=== PATIENT | female | born 1955 | race Caucasian/White ===

== ENCOUNTER 2018-10-25 17:04 | Observation (INO) ==
[2018-10-25] MEDS ORDERED: ALPRAZolam 0.5 MG TABLET PO ONE (17:34)
--- NOTE | 2018-10-25 17:35 | Emergency Department Note ---
Disposition Clinical Impression: Hyperglycemia, COPD (chronic obstructive pulmonary disease), Dyspnea Disposition: Admitted As Inpatient Condition: Fair Referrals: NONE,PCP [Primary Care Provider] - Forms: ED Satisfaction Letter Time of Disposition: 19:27 SOB HPI - General Chief Complaint: ED Shortness of Breath/Dyspnea Stated Complaint: short of breath,cough,pain Time Seen by Provider: 10/25/18 17:17 Source: patient Mode of arrival: ambulatory Limitations: no limitations Nursing Notes Reviewed: Yes Vital Signs Reviewed: Yes - History of Present Illness 63-year-old female who is had 4 ER visits prior to today who is been seen once a week for having upper respiratory symptoms cough and congestion intermittent wheezing she said today she sat with car for an hour and a half before she get worked up to come to the ER patient states that she's having cough congestion wheezing she's had no chest pain or chest pressure patient states that the symptoms blurred vision double vision loss vision she denies any numbness tingling weakness she has a recent weight gain rash or lesions states that she's been drinking a lot of fluids in addition that she is diabetic she states that she only takes oral medication she said her sugars run between 203 100 states that she's been urinating a lot she denies any additional complaints with complete entire review is Pt Subjective Complaint: shortness of breath Onset (ago): Just SCRIPT READER Context: recent illness Severity: moderate Consistency/Duration: constant, gradually worsening Improves with: nothing Worsens with: exertion Known history of: COPD Associated symptoms: Reports: cough, wheezing, sputum production. Denies: chest pain, pain with inspiration, fever, orthopnea, lower extremity pain, polyuria, polydipsia, parasthesias, palpitations, hemoptysis, nausea/vomiting, syncope, abdominal pain Treatment prior to arrival: other (4 prior ER visits to today for the same as well as daily discussions with her clinical biochemical geneticist) Cough present: Yes Cough Description: Involuntary, Weak, Wheezy Sputum production: Yes Sputum Amount: Small Sputum Color: Yellow - Related Data Home Medications Medication Instructions Recorded Confirmed Albuterol Sulfate [Proair HFA] 2 puff IH Q4HR 06/23/15 08/26/18 Gabapentin [Neurontin] 300 mg PO QID 06/23/15 08/26/18 Simvastatin [Zocor] 20 mg PO HS 06/23/15 10/25/18 Sitagliptin Phos/Metformin HCl 1 tab PO BID 06/23/15 10/25/18 [Janumet 50-1,000 mg Tablet] Aspirin [Ecotrin] 325 mg PO DAILY 08/26/18 08/26/18 Alendronate Sodium 70 mg PO QWEEK 09/30/18 09/30/18 DULoxetine [Cymbalta] 30 mg PO DAILY 09/30/18 09/30/18 Diclofenac Sodium [Voltaren] 50 mg PO TID 09/30/18 09/30/18 GlipiZIDE [Glipizide Xl] 5 mg PO DAILY 09/30/18 Insulin Glargine,Hum.rec.anlog 20 unit SQ 09/30/18 [Basaglar Kwikpen U-100] Montelukast [Singulair] 10 mg PO DAILY 09/30/18 Oxybutynin [Ditropan] 5 mg PO BID 09/30/18 09/30/18 Pioglitazone [Actos] mg PO DAILY 09/30/18 predniSONE [Prednisone] 10 mg PO DAILY 10/14/18 10/25/18 Previous Rx's Medication Instructions Recorded Albuterol Sulfate [Albuterol 2 puff IH Q6H #1 puff 08/16/15 Inhaler] Allergies Allergy/AdvReac Type Severity Reaction Status Date / Time codeine Allergy Hives Verified 10/25/18 17:05 propoxyphene [From Darvon] Allergy Hives Verified 10/25/18 17:05 All systems ED: reviewed and negative except as stated. Review of Systems: As Per HPI Constitutional: Denies: fever, chills, weakness Eyes: Denies: eye pain, eye discharge ENT ED: Reports: throat pain, congestion. Denies: ear pain Cardiovascular: Reports: dyspnea on exertion. Denies: chest pain, palpitations Respiratory: Reports: cough, dyspnea, wheezes, sputum production Gastrointestinal: Denies: abdominal pain, nausea, vomiting Genitourinary: Denies: urgency, dysuria, frequency Musculoskeletal: Denies: back pain, neck pain Integumentary: Denies: rash, abrasion Neurological: Reports: weakness. Denies: headache Psychiatric: Denies: anxiety, depression Endocrine: Reports: polydipsia, polyuria. Denies: fatigue, heat or cold intolerance Hematological/Lymphatic: Denies: easy bleeding Allergic/Immunologic: Denies: facial swelling Past Medical History - Past Medical History Attestation: Yes The following information was validated with the patient. Source: patient, old records reviewed, nursing notes reviewed Medical history: Reports: arthritis, asthma, COPD, diabetes, hyperlipidemia, hypertension, other Surgical history: Reports: , hysterectomy Psychiatric history: Reports: depression PRN OCCUPATIONAL THERAPIST history: Reports: no PRN OCCUPATIONAL THERAPIST history - Social History Smoking Status: Current every day smoker Smokeless Tobacco Status: No Alcohol use: Reports: none Drug use: Reports: none Physical Exam - General Limitations: no limitations General appearance: alert, in no apparent distress, anxious - Head Head exam: atraumatic, normocephalic, normal inspection - Eye Eye exam: Present: normal appearance, PERRL, EOMI - ENT ENT exam: normal exam, normal oropharynx, mucous membranes moist, TM's normal bilaterally, normal external ear exam - Neck Neck exam: Present: normal inspection, full ROM, trachea midline - Chest Chest inspection: Present: normal inspection, symmetric chest wall rise - Respiratory Respiratory exam: Present: wheezes, prolonged expiratory phase - Cardiovascular Cardiovascular exam: Present: tachycardia, normal heart sounds - Abdominal Exam Abdominal exam: Present: soft, Non-Tender, normal bowel sounds. Absent: mass, pulsatile mass - Extremities Exam Extremities exam: Present: normal inspection, full ROM, normal capillary refill. Absent: tenderness, pedal edema, joint swelling, calf tenderness - Expanded Lower Extremity Exam Neurovascular/Tendon exam: Present: normal capillary refill, normal fine/light touch Gait: observed and normal - Back Exam Back exam: Present: normal inspection, full ROM. Absent: muscle spasm - Neurological Exam Neurological exam: Present: alert, oriented X3, CN II-XII intact, normal gait - Psychiatric Psychiatric exam: Present: normal affect, normal mood - Skin Skin exam: Present: warm, dry, intact, normal color Course Course Narrative: Patient was seen and evaluated laboratory data was obtained patient was very hesitant on doing IV access but she finally did agree we gave her Xanax to calm her down blood was obtained with results maintain her sugar was 465 she is a noncompliant diabetic she is only taking oral she refuses to do shots she supposed be taking 20 units of what sounds like Lantus the evenings as result of the patient be medication exacerbation of COPD which is that the rhonchi and wheezing noted normal for her on medications for her diabetes while she is here patient was then transferred to [facility] service of Dr. Farmer - Reevaluation(s) Reevaluation #1: Patient given 10 units of insulin here in the emergency room with IV hydration Vital Signs Temperature 98.3 F 10/25/18 17:07 Pulse Rate 112 10/25/18 17:07 Respiratory Rate 18 10/25/18 17:07 Blood Pressure 138/87 10/25/18 17:07 O2 Sat by Pulse Oximetry 98 10/25/18 17:07 Temperature 98.7 F 10/25/18 20:44 Pulse Rate 100 10/25/18 20:44 Respiratory Rate 20 10/25/18 20:44 Blood Pressure 120/76 10/25/18 20:44 O2 Sat by Pulse Oximetry 98 10/25/18 20:44 Oxygen Delivery Oxygen Delivery Nasal Cannula Shortness of Breath/Dyspnea - Differential Diagnosis Likely: acute exacerbation of chronic obstructive airways disease, congestive heart failure, pneumonia, asthma with exacerbation - Medical Records Medical records reviewed: Yes I reviewed the patient's medical records. - Lab Data Lab results reviewed: Yes I reviewed the patient's lab results. Result diagrams: 10/25/18 18:25 10/25/18 18:25 Lab Results 10/25/18 10/25/18 10/25/18 Range/Units 18:25 18:25 18:25 WBC 10.9 (4.3-11.1) K/mcL RBC 4.49 (3.82-4.97) M/mcL Hgb 12.8 (11.5-15.4) g/dL Hct 38.6 (35.3-44.9) % MCV 86.0 (83.0-100.0) fL MCH 28.5 (28.0-33.3) pg MCHC 33.2 (31.6-35.5) g/dL RDW 13.9 (11.5-14.5) % Plt Count 241 (140-400) K/mcL MPV 10.9 (9.4-12.4) fL Immature Gran % 0.5 (0-4) % Seg Neutrophils % 80.8 % Lymphocytes % 13.5 % Monocytes % 4.9 % Eosinophils % 0.2 % Basophils % 0.1 % Neutrophils # 8.8 (1.6-8.9) K/mcL Lymphocytes # 1.5 (0.6-4.6) K/mcL Monocytes # 0.5 (0.0-1.3) K/mcL Eosinophils # 0.0 (0.0-0.6) K/mcL Basophils # 0.0 (0.0-0.2) K/mcL Sodium 136 (136-145) mEq/L Potassium 4.3 (3.5-5.1) mEq/L Chloride 99 (98-107) mEq/L Carbon Dioxide 30 H (23-29) mEq/L BUN 22 (8-23) mg/dL Creatinine 0.85 (0.60-1.20) mg/dL Est GFR ( Amer) > 60 (> 60) Est GFR (Non-Af Amer) > 60 (> 60) BUN/Creatinine Ratio 26 (6-26) Glucose 425 H (70-105) mg/dL Calculated Osmolality 303 H (280-300) Lactic Acid 2.3 H (0.5-2.2) mmol/L Calcium 9.5 (8.6-10.3) mg/dL - Radiology Data Radiology results reviewed: Yes I reviewed the patient's radiology results. ITS Impressions Chest CT 10/25/18 17:36 IMPRESSION: 1. Stable right middle lobe atelectasis. Consider pulmonary consultation and bronchoscopy if not already performed. 2. No acute pulmonary infiltrate. Stable mild emphysematous changes. 3. New mild compression fractures of the T4 and T6 vertebral bodies. 4. Cardiomegaly with mild pericardial thickening or small pericardial effusion. D/ / 10/25/2018 18:23:08 Alexandr Leal MD / bcarter Interpreting Provider: Alexandr Leal MD - EKG Data EKG attestation: Yes I reviewed and interpreted this EKG. EKG results narrative: Sinus rhythm rate 97 IL 146 QRS 101 QT 365 axis LXXI Critical Care Time Critical Care Time: No
[2018-10-25] MEDS ORDERED: methylPREDNISolone 125 MG/2 ML VIAL IVP ONE (17:36)
[2018-10-25] MEDS ORDERED: Azithromycin 500 MG in D5% in Water 250 ML IVPB ONE (17:36)
[2018-10-25 18:37] LABS: Basophils % 0.1 %; Eosinophils % 0.2 %; Hematocrit 38.6 % (35.3-44.9); Hemoglobin 12.8 g/dL (11.5-15.4); Immature Granulocytes % 0.5 % (0-4); Lymphocytes # 1.5 K/mcL (0.6-4.6); Lymphocytes % 13.5 %; Mean Corpuscular HGB Conc 33.2 g/dL (31.6-35.5); Mean Corpuscular Hemoglobin 28.5 pg (28.0-33.3); Mean Platelet Volume 10.9 fL (9.4-12.4); Monocytes # 0.5 K/mcL (0.0-1.3); Monocytes % 4.9 %; Neutrophils # 8.8 K/mcL (1.6-8.9); Platelet Count 241 K/mcL (140-400); Red Blood Count 4.49 M/mcL (3.82-4.97); Red Cell Distribution Width 13.9 % (11.5-14.5); Segmented Neutrophils % 80.8 %
[2018-10-25 18:53] LABS: BUN/Creatinine Ratio 26 (6-26); Blood Urea Nitrogen 22 mg/dL (8-23); Calcium 9.5 mg/dL (8.6-10.3); Carbon Dioxide 30 mEq/L (23-29); Chloride 99 mEq/L (98-107); Glucose 425 mg/dL (70-105); Osmolality,Calculated 303 (280-300); Potassium 4.3 mEq/L (3.5-5.1); Sodium 136 mEq/L (136-145); eGFR For Non-African Americans > 60 (> 60)
[2018-10-25] MEDS ORDERED: Insulin Human Regular 10 UNIT in 0.9 % Sodium Chloride 10 ML IV STA (19:08)
[2018-10-25] MEDS ORDERED: Naloxone 0.4 MG/ML INJ IVP PRN (21:38)
[2018-10-25] MEDS ORDERED: D5% in Water 1,000 ML IVC PRN (21:38)
[2018-10-25] MEDS ORDERED: *HR* Dextrose 50 % in Water (Syg) 50 ML SYRINGE IVP PRN (21:38)
[2018-10-25] MEDS ORDERED: Dextrose Gel 15 GM/37.5 ML TUBE PO PRN ×2 (21:38)
[2018-10-25] MEDS ORDERED: NON-FORMULARY MEDICATION 1 EACH EACH (Alendronate Sodium [Alendronate Sodium] 70 MG) PO SCH (21:38)
[2018-10-26] MEDS: traMADol 50 MG TABLET PO PRN ×3 (00:01→08:41)
[2018-10-26] MEDS: Gabapentin 300 MG CAPSULE PO SCH ×5 (00:02→21:35)
[2018-10-26] MEDS: JANUMET PO SCH ×2 (00:02→08:16)
[2018-10-26] MEDS: Insulin LISPRO 300 UNITS/3 ML VIAL SQ SCH ×4 (00:02→16:53)
[2018-10-26] MEDS: 0.9 % Sodium Chloride 1,000 ML IVC SCH ×2 (00:02→08:28)
[2018-10-26] MEDS: MethylPREDNISolone 40 MG/ML VIAL IVP SCH ×4 (00:05→17:05)
[2018-10-26] MEDS: cefTRIAXone 1,000 MG in Water for inj. (sterile) 20 ML 10 ML IVP SCH (08:30)
[2018-10-26] MEDS: *HR* GlipiZIDE XL (24 HR) 2.5 MG TABLET PO SCH (08:31)
[2018-10-26] MEDS ORDERED: Aspirin Enteric Coated 325 MG Tablet PO SCH (09:00)
[2018-10-26] MEDS ORDERED: Ondansetron 4 MG/2 ML VIAL IVP PRN (10:39)
[2018-10-26] MEDS: Nicotine 21 MG PATCH.TD24 TD SCH (11:38)
[2018-10-26] MEDS: Fluconazole 100 MG TABLET PO SCH (11:40)
--- NOTE | 2018-10-26 14:48 | Internal Med History&Physical ---
Date of Encounter: 10/26/18 Time of Encounter: 14:05 Assessment and Plan (1) COPD (chronic obstructive pulmonary disease) Current visit: Yes Status: Acute She has been started on Rocephin and Zithromax with Solu-Medrol. Lactobacillus will be added and further workup done as needed. Qualifiers: COPD type: COPD with acute exacerbation Qualified Code(s): J44.1 - Chronic obstructive pulmonary disease with (acute) exacerbation (2) Hypertension Current visit: Yes Status: Chronic She reports being on antihypertensive medication at home but does not know the name. Will monitor blood pressure. Qualifiers: Hypertension type: essential hypertension Qualified Code(s): I10 - Essential (primary) hypertension (3) DM type 2 (diabetes mellitus, type 2) Current visit: Yes Status: Chronic Check hemoglobin A1c in a.m. Continue Accu-Cheks with SSI. Qualifiers: Diabetes mellitus half-way insulin use: with oysterman use Diabetes mellitus complication status: with neurologic complications Diabetes mellitus complication detail: with polyneuropathy Qualified Code(s): E11.42 - Type 2 diabetes mellitus with diabetic polyneuropathy; Z79.4 - senior care (current) use of insulin (4) Hyperlipidemia Current visit: Yes Status: Chronic Continue simvastatin Qualifiers: Hyperlipidemia type: unspecified Qualified Code(s): E78.5 - Hyperlipidemia, unspecified (5) Diabetic peripheral neuropathy Current visit: Yes Status: Acute Continue Cymbalta and gabapentin (6) Overactive bladder Current visit: Yes Status: Acute Continue Ditropan (7) Compression fracture of thoracic spine, non-traumatic Current visit: Yes Status: Acute Start scheduled analgesics in addition to prn analgesics. Oral and topical analgesics will be ordered. Vitamin D level will be drawn. Qualifiers: Encounter type: initial encounter Thoracic vertebra fracture level: T6 Qualified Code(s): M48.54XA - Collapsed vertebra, not elsewhere classified, thoracic region, initial encounter for fracture Internal Medicine - H&P: HPI Chief complaint: Dyspnea, fever Admitted From: Emergency Dept Plans for Post Hospital Care: Home History of present illness: Ms. Soriano is a 63 year old female who came to emergency room complaining of increased dyspnea over the preceding days with nonproductive cough and fever up to 102.7 at home. She was evaluated in emergency room and felt to have exacerbation of COPD. She was admitted to MedSurg floor for ongoing care needs. Respiratory history is significant for having smoked since age 12 up to 3 packs per day. She has a diagnosis of COPD and wears oxygen 24/ at home. She had bronchoscopy 08/14/2017 for right middle lobe collapse. She does not know report details. Chest CT in emergency room showed stable right middle lobe atelectasis but no other worrisome pathology. New mild compression fractures of T4 and T6 vertebral bodies were observed on chest CT. She denies trauma. She has DJD and has had knee arthroscopy in the past. She denies other bone joint or muscle disorders. Past Med Surg Social Fam HX - Past Medical History Medical history: arthritis, asthma, COPD, diabetes, hyperlipidemia, hypertension, other Additional medical history: NEUROPATHY Psychiatric history: depression - Past Surgical History Surgical History: , hysterectomy Additional surgical history: Brain aneurysm removed; lung surgery; Bladder Surgery - Social History Smoking Status: Current every day smoker Packs per day: 1.5 Smokeless Tobacco Status: No Alcohol use: none Drug use: none Internal Medicine - H&P: Meds Albuterol Sulfate [Proair HFA] 2 puff IH Q4HR 06/23/15 [History] Gabapentin [Neurontin] 300 mg PO QID 06/23/15 [History] Simvastatin [Zocor] 20 mg PO HS 06/23/15 [History] Sitagliptin Phos/Metformin HCl [Janumet 50-1,000 mg Tablet] 1 tab PO BID 06/23/15 [History] Albuterol Sulfate [Albuterol Inhaler] 2 puff IH Q6H #1 puff 08/16/15 [Rx] Aspirin [Ecotrin] 325 mg PO DAILY 08/26/18 [History] Alendronate Sodium 70 mg PO QWEEK 09/30/18 [History] DULoxetine [Cymbalta] 30 mg PO DAILY 09/30/18 [History] Diclofenac Sodium [Voltaren] 50 mg PO TID 09/30/18 [History] GlipiZIDE [Glipizide Xl] 5 mg PO DAILY 09/30/18 [History] Insulin Glargine,Hum.rec.anlog [Basaglar Kwikpen U-100] 20 unit SQ 09/30/18 [History] Montelukast [Singulair] 10 mg PO DAILY 09/30/18 [History] Oxybutynin [Ditropan] 5 mg PO BID 09/30/18 [History] Pioglitazone [Actos] mg PO DAILY 09/30/18 [History] predniSONE [Prednisone] 10 mg PO DAILY 10/14/18 [History] Allergy/AdvReac Type Severity Reaction Status Date / Time codeine Allergy Hives Verified 10/25/18 17:05 propoxyphene [From Darvon] Allergy Hives Verified 10/25/18 17:05 All Systems PM: A 10-system review of systems was performed and is negative for pertinent findings except as documented above in the HPI. Review of systems: Gen.: She states her weight has increased approximately 50 pounds in the past 2- 1/2 months since starting prednisone Cardiovascular: She has hypertension and claims ASPVD. She denies DVT pulmonary embolus or heart failure. Respiratory: As per history of present illness GI: She denies disorders of her liver gallbladder or exocrine pancreas : She has overactive bladder. She reports having had "bladder lift surgery" in the past She denies other kidney or bladder disorders Neurologic: She has diabetic peripheral neuropathy. She denies large distribution strokes or seizures. Endocrine: She was diagnosed with DM 2 in 2010. She has hyperlipidemia but denies thyroid disease. Hematology/oncology: She denies blood disorders cancers or anemia Psychiatric: She denies anxiety depression or other mental health issues [place] skeletal: As per history of present illness - Constitutional Vitals: Temp Pulse Resp BP Pulse Ox 98.2 F 93 18 136/86 94 10/26/18 10:31 10/26/18 10:31 10/26/18 10:31 10/26/18 10:31 10/26/18 10:31 Exam: Gen.: She is a well-developed overweight female lying in bed who appears in significant distress on movement HEENT: Head is atraumatic and normocephalic. Eyes: EOMI. There is no scleral icterus. Mouth: Mucosa is moist. Neck: Supple and nontender. There is no thyromegaly or adenopathy noted. Heart: Regular without murmurs gallops or ectopics Lungs: She has prolonged expiratory phase and mild diffuse wheezing. No inspiratory crackles are heard. Abdomen: Soft and nontender. No masses or guarding are noted. Extremities: There is no cyanosis edema or clubbing noted. Dorsalis pedis and posterior tibial pulses are trace palpable bilaterally. Neurologic: Mental status: She is talkative and a good historian. Cranial nerves: Smile is symmetric. Forehead wrinkles bilaterally. Tongue protrudes midline. EOMI. Motor: There is no pronator drift. Cerebellar: Finger to nose is intact bilaterally. Skin: Warm and dry Internal Med - H&P Results - Labs CBC & Chem 7: 10/25/18 18:25 10/25/18 18:25 Labs: Short CBC 10/25/18 Range/Units 18:25 WBC 10.9 (4.3-11.1) K/mcL Hgb 12.8 (11.5-15.4) g/dL Hct 38.6 (35.3-44.9) % Plt Count 241 (140-400) K/mcL Neutrophils # 8.8 (1.6-8.9) K/mcL BMP 10/25/18 18:25 Sodium 136 Potassium 4.3 Chloride 99 Carbon Dioxide 30 H BUN 22 Creatinine 0.85 Glucose 425 H Calcium 9.5 - Impressions ITS Impressions Chest CT 10/25/18 17:36 IMPRESSION: 1. Stable right middle lobe atelectasis. Consider pulmonary consultation and bronchoscopy if not already performed. 2. No acute pulmonary infiltrate. Stable mild emphysematous changes. 3. New mild compression fractures of the T4 and T6 vertebral bodies. 4. Cardiomegaly with mild pericardial thickening or small pericardial effusion. D/ / 10/25/2018 18:23:08 Alexandr Leal MD / jose angelrtjuan Interpreting Provider: Alexandr Leal MD
[2018-10-26] MEDS: traMADol 50 MG TABLET PO SCH ×2 (16:06→21:34)
[2018-10-26] MEDS: Methyl Salicylate/Menthol 28 GM TUBE TP SCH (16:12)
[2018-10-26] MEDS ORDERED: *HR* FentaNYL PATCH 12 MCG PATCH TD SCH (17:00)
[2018-10-26] MEDS: *HR* Metformin 500 MG TABLET PO SCH (17:01)
--- NOTE | 2018-10-26 17:01 | Electrocardiograph Report ---
[place] [id number] Test Date: 2018-10-25 Pat Name: Erna Soriano Department: EDP-12 Room: [facility] Gender: F Tripe Finisher: : 1955 Requested By: Elva Murphy Order Number: [id number] Reading MD: Eduar Castro Measurements Intervals [place] Rate: 97 P: 57 NV: 146 QRS: 71 QRSD: 101 T: -32 QT: 365 QTc: 464 Interpretive Statements Sinus rhythm Inferior ST-T changes, consider ischemia Electronically Signed On 10-26-2018 16:59:29 EST by Eduar Castro
[2018-10-26] MEDS: Acetaminophen 325 MG TABLET PO SCH (17:02)
[2018-10-26] MEDS: *HR* SitaGLIPtin 25 MG TABLET PO SCH (17:02)
[2018-10-26] MEDS: Azithromycin 500 MG in D5% in Water 250 ML IVPB SCH (18:14)
[2018-10-26] MEDS: Budesonide/Formoterol 160/4.5 1 PUFF INH IH SCH (22:47)
[2018-10-27] MEDS: MethylPREDNISolone 40 MG/ML VIAL IVP SCH ×3 (00:17→12:35)
[2018-10-27] MEDS: Acetaminophen 325 MG TABLET PO SCH ×4 (00:17→17:36)
[2018-10-27] MEDS: traMADol 50 MG TABLET PO SCH ×4 (04:18→20:35)
[2018-10-27] MEDS: Albuterol 2.5 MG/3 ML NEBULIZER IH PRN ×3 (06:31→22:00)
[2018-10-27] MEDS: Tiotropium 18 MCG inhalation IH SCH (06:35)
[2018-10-27 07:44] LABS: Basophils % 0.1 %; Hematocrit 37.9 % (35.3-44.9); Hemoglobin 12.3 g/dL (11.5-15.4); Immature Granulocytes % 0.9 % (0-4); Lymphocytes # 0.7 K/mcL (0.6-4.6); Lymphocytes % 4.2 %; Mean Corpuscular HGB Conc 32.5 g/dL (31.6-35.5); Mean Corpuscular Hemoglobin 28.5 pg (28.0-33.3); Mean Corpuscular Volume 87.7 fL (83.0-100.0); Mean Platelet Volume 11.5 fL (9.4-12.4); Monocytes # 0.4 K/mcL (0.0-1.3); Monocytes % 2.4 %; Neutrophils # 15.9 K/mcL (1.6-8.9); Platelet Count 242 K/mcL (140-400); Red Blood Count 4.32 M/mcL (3.82-4.97); Red Cell Distribution Width 13.9 % (11.5-14.5); Segmented Neutrophils % 92.4 %
[2018-10-27] MEDS ORDERED: *HR* Pioglitazone 15 MG TABLET PO SCH (08:00)
[2018-10-27 08:03] LABS: BUN/Creatinine Ratio 32 (6-26); Blood Urea Nitrogen 26 mg/dL (8-23); Calcium 9.1 mg/dL (8.6-10.3); Carbon Dioxide 28 mEq/L (23-29); Chloride 102 mEq/L (98-107); Chol/HDL Ratio 4.6 (0-4.9); Cholesterol 238 mg/dL (< 200); Glucose 414 mg/dL (70-105); HDL Cholesterol 52 mg/dL (40-59); LDL Cholesterol,Calculated 151 mg/dL (0-99); Osmolality,Calculated 298 (280-300); Potassium 4.2 mEq/L (3.5-5.1); Sodium 133 mEq/L (136-145); Triglycerides 177 mg/dL (< 150); eGFR For Non-African Americans > 60 (> 60)
[2018-10-27] MEDS: Insulin LISPRO 300 UNITS/3 ML VIAL SQ SCH ×3 (08:11→17:40)
[2018-10-27] MEDS: *HR* Metformin 500 MG TABLET PO SCH ×2 (08:13→17:37)
[2018-10-27] MEDS: *HR* SitaGLIPtin 25 MG TABLET PO SCH ×2 (08:13→17:36)
[2018-10-27] MEDS: Budesonide/Formoterol 160/4.5 1 PUFF INH IH SCH ×2 (09:19→22:01)
[2018-10-27 09:27] LABS: Estimated Average Glucose 220 mg/dl; Hemoglobin A1C 9.3 %
[2018-10-27] MEDS: Methyl Salicylate/Menthol 28 GM TUBE TP SCH (10:39)
[2018-10-27] MEDS: Fluconazole 100 MG TABLET PO SCH (10:42)
[2018-10-27] MEDS: *HR* GlipiZIDE XL (24 HR) 2.5 MG TABLET PO SCH (10:43)
[2018-10-27] MEDS: Nicotine 21 MG PATCH.TD24 TD SCH (10:43)
[2018-10-27] MEDS: Gabapentin 300 MG CAPSULE PO SCH ×4 (10:43→20:35)
[2018-10-27] MEDS: cefTRIAXone 1,000 MG in Water for inj. (sterile) 20 ML 10 ML IVP SCH (10:44)
--- NOTE | 2018-10-27 15:29 | Internal Med Progress Note ---
Date of Encounter: 10/27/18 Time of Encounter: 15:20 - Assessment and plan (1) COPD (chronic obstructive pulmonary disease) Current Visit: Yes Status: Acute Assessment and plan: October 27. Continue Rocephin and Zithromax with lactobacillus. Change to oral prednisone. Recheck labs in a.m. Qualifiers: COPD type: COPD with acute exacerbation Qualified Code(s): J44.1 - Chronic obstructive pulmonary disease with (acute) exacerbation (2) Hypertension Current Visit: Yes Status: Chronic Assessment and plan: October 27. Blood pressure stable off antihypertensive medication. Continue to monitor. Qualifiers: Hypertension type: essential hypertension Qualified Code(s): I10 - Essential (primary) hypertension (3) DM type 2 (diabetes mellitus, type 2) Current Visit: Yes Status: Chronic Assessment and plan: October 27. Hemoglobin A1c elevated at 9.3%. Continue Janumet, Actos, and Basaglar at present doses. Increase glipizide to 10 mg daily. and Accu-Cheks with SSI. Qualifiers: Diabetes mellitus exterminator insulin use: with exterminator use Diabetes mellitus complication status: with neurologic complications Diabetes mellitus complication detail: with polyneuropathy Qualified Code(s): E11.42 - Type 2 diabetes mellitus with diabetic polyneuropathy; Z79.4 - terminal clerk (current) use of insulin (4) Hyperlipidemia Current Visit: Yes Status: Chronic Assessment and plan: October 27. Lipid profile shows total cholesterol 238, triglycerides 177, LDL 151, HDL 52, and total/HDL ratio 4.6. Change from Zocor to atorvastatin 80 mg at bedtime. Qualifiers: Hyperlipidemia type: unspecified Qualified Code(s): E78.5 - Hyperlipidemia, unspecified (5) Diabetic peripheral neuropathy Current Visit: Yes Status: Acute Assessment and plan: October 27. Continue Neurontin. Increase Cymbalta to 60 mg daily for DPN and back pain (6) Overactive bladder Current Visit: Yes Status: Acute Assessment and plan: October 27. Continue Ditropan. (7) Compression fracture of thoracic spine, non-traumatic Current Visit: Yes Status: Acute Assessment and plan: October 27. Increase Duragesic to 25 g per hour. Continue Ultram, Tylenol, and BenGay/Lidoderm patch. Vitamin D level pending. Qualifiers: Encounter type: initial encounter Thoracic vertebra fracture level: T6 Qualified Code(s): M48.54XA - Collapsed vertebra, not elsewhere classified, thoracic region, initial encounter for fracture - Subjective Interval history: October 27. She has no new complaints. She states her back pain and breathing are not significantly changed. - Constitutional Vitals: Temp Pulse Resp BP Pulse Ox 98.1 F 98 17 126/78 97 10/27/18 11:00 10/27/18 11:00 10/27/18 11:00 10/27/18 11:00 10/27/18 11:00 Exam: She is lying in bed and appears in mild to moderate pain on coughing. She has prolonged expiratory phase with wheezing and scattered rhonchi. Her affect is overall cheerful. I reviewed her medications and lab results. Internal Medicine: Result - Labs CBC & Chem 7: 10/27/18 07:18 10/27/18 07:18 Labs: Short CBC 10/27/18 Range/Units 07:18 WBC 17.2 H D (4.3-11.1) K/mcL Hgb 12.3 (11.5-15.4) g/dL Hct 37.9 (35.3-44.9) % Plt Count 242 (140-400) K/mcL Neutrophils # 15.9 H (1.6-8.9) K/mcL BMP 10/27/18 07:18 Sodium 133 L Potassium 4.2 Chloride 102 Carbon Dioxide 28 BUN 26 H Creatinine 0.82 Glucose 414 H Calcium 9.1 Consult Discharge Plan - Plan Referrals: NONE,PCP [Primary Care Provider] - 1 week
[2018-10-27] MEDS ORDERED: *HR* FentaNYL PATCH 12 MCG PATCH TD SCH (15:42)
[2018-10-27] MEDS ORDERED: *HR* GlipiZIDE XL (24 HR) 2.5 MG TABLET PO SCH (16:00)
[2018-10-27] MEDS ORDERED: *HR* FentaNYL PATCH 25 MCG PATCH TD SCH (17:30)
[2018-10-27] MEDS: predniSONE 20 MG TABLET PO SCH (17:36)
[2018-10-27] MEDS: Azithromycin 500 MG in D5% in Water 250 ML IVPB SCH (17:39)
[2018-10-28] MEDS: Acetaminophen 325 MG TABLET PO SCH ×2 (00:24→06:45)
[2018-10-28] MEDS: traMADol 50 MG TABLET PO SCH ×2 (03:35→09:03)
[2018-10-28 06:55] VITALS: BP 124/81
[2018-10-28] MEDS: Gabapentin 300 MG CAPSULE PO SCH (09:02)
[2018-10-28] MEDS: Fluconazole 100 MG TABLET PO SCH (09:02)
[2018-10-28] MEDS: predniSONE 20 MG TABLET PO SCH (09:03)
[2018-10-28] MEDS: Nicotine 21 MG PATCH.TD24 TD SCH (09:15)
[2018-10-28] MEDS: cefTRIAXone 1,000 MG in Water for inj. (sterile) 20 ML 10 ML IVP SCH (09:19)
[2018-10-28] MEDS: Methyl Salicylate/Menthol 28 GM TUBE TP SCH (09:21)
[2018-10-28] MEDS: Budesonide/Formoterol 160/4.5 1 PUFF INH IH SCH (09:28)
[2018-10-28] MEDS: Albuterol 2.5 MG/3 ML NEBULIZER IH PRN (09:28)
[2018-10-28] MEDS: Tiotropium 18 MCG inhalation IH SCH (09:28)
--- NOTE | 2018-10-28 09:56 | Discharge Summary ---
Orders not resulted at time of discharge: Pending orders 10/25/18 18:30 Culture,Blood [BC] Stat 10/27/18 07:18 Vitamin D 25 Hydroxy AM 0400 10/28/18 04:00 B-Type Natriuretic Peptide AM 0400 Basic Metabolic Panel AM 0400 Complete Blood Count [HEME] AM 0400 Date of Encounter: 10/28/18 Time of Encounter: 09:50 - Discharge Diagnosis (1) COPD (chronic obstructive pulmonary disease) Priority: Primary Status: Acute Qualifiers: COPD type: COPD with acute exacerbation Qualified Code(s): J44.1 - Chronic obstructive pulmonary disease with (acute) exacerbation (2) Compression fracture of thoracic spine, non-traumatic Priority: Secondary Status: Acute Qualifiers: Encounter type: initial encounter Thoracic vertebra fracture level: T6 Qualified Code(s): M48.54XA - Collapsed vertebra, not elsewhere classified, thoracic region, initial encounter for fracture (3) Hypertension Priority: Secondary Status: Chronic Qualifiers: Hypertension type: essential hypertension Qualified Code(s): I10 - Essential (primary) hypertension (4) DM type 2 (diabetes mellitus, type 2) Priority: Secondary Status: Chronic Qualifiers: Diabetes mellitus termite treater insulin use: with fci use Diabetes mellitus complication status: with neurologic complications Diabetes mellitus complication detail: with polyneuropathy Qualified Code(s): E11.42 - Type 2 diabetes mellitus with diabetic polyneuropathy; Z79.4 - correction (current) use of insulin (5) Hyperlipidemia Priority: Secondary Status: Chronic Qualifiers: Hyperlipidemia type: unspecified Qualified Code(s): E78.5 - Hyperlipidemia, unspecified (6) Diabetic peripheral neuropathy Priority: Secondary Status: Acute (7) Overactive bladder Priority: Secondary Status: Acute Hospital course: Ms. Soriano is a 63 year old female who came to emergency room complaining of increased dyspnea over the preceding days with nonproductive cough and fever up to 102.7 at home. She was evaluated in emergency room and felt to have exacerbation of COPD. She was admitted to [facility] floor for ongoing care needs. Initial orders were written by the emergency room physician. I saw her on October 26 and performed a history and physical. She was started on Rocephin and Zithromax with Solu-Medrol. She was changed to oral prednisone on October 27. WBC rebecca to 17.2 on October 27 with left shift showing 92.4% segs on differential. Repeat CBC was ordered for October 28 but patient refused lab draw. She remained clinically stable and afebrile. She will continue with antibiotic and probiotic for 3 additional days at discharge. She was started on Symbicort and Spiriva. She will continue albuterol as at home. I encouraged her to become a nonsmoker. She remained off blood pressure medication and blood pressure was stable. She did not know the name of her home antihypertensive. Her PCP can monitor. Hemoglobin A1c returned significantly elevated at 9.3%. She will continue Actos, basaglar, and Janumet as at home. Glucotrol XL was increased to 5 mg twice a day. Lipid profile showed cholesterol 238, triglycerides 177, LDL 151, HDL 52, and total/HDL ratio 4.6. She was changed from simvastatin to high-dose atorvastatin because of her CAD risk status. She was treated with Duragesic patch, Lidoderm patch, and topical BenGay for her T4 and T6 compression fractures. Tramadol was continued. She had decrease in the amount of pain on this regimen. Her PCP can monitor and adjust medications as needed. Vitamin D level is pending at time of discharge. She will be discharged home today and follow with her PCP Saranya Patiño CNP within 1 week. - Time Spent with Patient Total time spent providing and/or coordinating discharge services: - Discharge Medications Prescriptions: Cefuroxime PO [Ceftin] 500 mg PO Q12HR #6 tablet Atorvastatin [Lipitor] 80 mg PO HS #60 tablet Azithromycin [Zithromax] 250 mg PO DAILY #3 tablet Budesonide/Formoterol 160/4.5 [Symbicort 160/4.5] 2 puff IH BIDR #1 inh DULoxetine [Cymbalta] 60 mg PO DAILY #60 capsule. FentaNYL PATCH [Duragesic] 25 mcg TD Q72H 6 Days #2 patch.td72 GlipiZIDE [Glipizide Xl] 5 mg PO BID #60 tab.er.24 Lactobacillus [Culturelle] 1 each PO BID #6 cap.sprink Lidocaine Patch [Lidoderm 5% patch] 1 each TP DAILY #7 adh..patch Tiotropium [Spiriva] 18 mcg IH DAILY@0700 #30 inh Tramadol HCl [Tramadol HCl ER] 100 mg PO Q6H 7 Days #28 tab.er.24h Home Medications: Albuterol Sulfate [Albuterol Inhaler] 2 puff IH Q4HR 06/23/15 [History] Gabapentin [Neurontin] 300 mg PO QID 06/23/15 [History] Sitagliptin Phos/Metformin HCl [Janumet 50-1,000 mg Tablet] 1 tab PO BID 06/23/15 [History] Albuterol Sulfate [Albuterol Inhaler] 2 puff IH Q6H #1 puff 08/16/15 [Rx] Aspirin [Ecotrin] 325 mg PO DAILY 08/26/18 [History] Alendronate Sodium 70 mg PO QWEEK 09/30/18 [History] Diclofenac Sodium [Voltaren] 50 mg PO TID 09/30/18 [History] Insulin Glargine,Hum.rec.anlog [Basaglar Kwikpen U-100] 20 unit SQ 09/30/18 [History] Montelukast [Singulair] 10 mg PO DAILY 09/30/18 [History] Oxybutynin [Ditropan] 5 mg PO BID 09/30/18 [History] Pioglitazone [Actos] mg PO DAILY 09/30/18 [History] predniSONE [Prednisone] 10 mg PO DAILY 10/14/18 [History] Acetaminophen [Tylenol] 650 mg PO Q6HR tablet 10/28/18 [Rx] Atorvastatin [Lipitor] 80 mg PO HS #60 tablet 10/28/18 [Rx] Azithromycin [Zithromax] 250 mg PO DAILY #3 tablet 10/28/18 [Rx] Budesonide/Formoterol 160/4.5 [Symbicort 160/4.5] 2 puff IH BIDR #1 inh 10/28/18 [Rx] Cefuroxime PO [Ceftin] 500 mg PO Q12HR #6 tablet 10/28/18 [Rx] DULoxetine [Cymbalta] 60 mg PO DAILY #60 capsule. 10/28/18 [Rx] FentaNYL PATCH [Duragesic] 25 mcg TD Q72H 6 Days #2 patch.td72 10/28/18 [Rx] GlipiZIDE [Glipizide Xl] 5 mg PO BID #60 tab.er.24 10/28/18 [Rx] Lactobacillus [Culturelle] 1 each PO BID #6 cap.sprink 10/28/18 [Rx] Lidocaine Patch [Lidoderm 5% patch] 1 each TP DAILY #7 adh..patch 10/28/18 [Rx] Methyl Salicylate/Menthol [Bengay] 1 appl TP DAILY tube 10/28/18 [Rx] Tiotropium [Spiriva] 18 mcg IH DAILY@0700 #30 inh 10/28/18 [Rx] Tramadol HCl [Tramadol HCl ER] 100 mg PO Q6H 7 Days #28 tab.er.24h 10/28/18 [Rx] Allergies/Adverse Reactions: Allergy/AdvReac Type Severity Reaction Status Date / Time codeine Allergy Hives Verified 10/25/18 17:05 propoxyphene [From Darvon] Allergy Hives Verified 10/25/18 17:05 Date of admission: 10/25/18 21:17 Primary care physician: Saranya Patiño CNP Consults: 10/25/18 21:38 Consult to Nurse Navigator [CONS] Routine Comment: - Constitutional Vitals: Temp Pulse Resp BP Pulse Ox 98.4 F 92 16 124/81 98 10/28/18 06:55 10/28/18 06:55 10/28/18 09:29 10/28/18 06:55 10/28/18 09:29 - Patient Status Disposition: Home, Self-Care Condition: Fair - Discharge Instructions Follow Up With: Saranya Patiño, MICROBIOLOGY TEACHER [Advanced Practice Nurse] - 1 week - Diet and Activity Activity: resume usual activities as tolerated, wear oxygen at all times Diet: diabetic diet
== END 2018-10-28 11:01 | disposition home or self-care (01) ==
LOC: INPPIK 17:04 → EMEROOPIK 17:04 → INPPIK 21:29
PROVIDERS: ADMIT Internal Medicine; ATTEND Internal Medicine

== ENCOUNTER 2021-03-18 15:58 | Inpatient (IN) ==
[2021-03-18] MEDS ORDERED: Ipratropium/Albuterol Neb 3 ML IH ONE (16:20)
[2021-03-18] MEDS ORDERED: methylPREDNISolone 125 MG/2 ML VIAL IVP ONE (16:20)
[2021-03-18] MEDS ORDERED: Lidocaine Viscous Oral Soln 15 ML SOLUTION ONE (16:40)
[2021-03-18 17:29] LABS: Basophils % 0.6 %; Eosinophils # 0.8 K/mcL (0.0-0.6); Eosinophils % 10.4 %; Hematocrit 44.2 % (35.3-44.9); Hemoglobin 14.5 g/dL (11.5-15.4); Immature Granulocytes % 0.3 % (0-4); Lymphocytes # 1.5 K/mcL (0.6-4.6); Mean Corpuscular HGB Conc 32.8 g/dL (31.6-35.5); Mean Corpuscular Hemoglobin 27.9 pg (28.0-33.3); Mean Corpuscular Volume 85.2 fL (83.0-100.0); Mean Platelet Volume 12.4 fL (9.4-12.4); Monocytes # 0.4 K/mcL (0.0-1.3); Monocytes % 5.4 %; Neutrophils # 4.5 K/mcL (1.6-8.9); Platelet Count 188 K/mcL (140-400); Red Blood Count 5.19 M/mcL (3.82-4.97); Red Cell Distribution Width 15.5 % (11.5-14.5); Segmented Neutrophils % 62.3 %; White Blood Count 7.2 K/mcL (4.3-11.1)
[2021-03-18 17:37] LABS: INR 1.3; Prothrombin Time 14.9 Seconds (9.4-12.1)
[2021-03-18 17:39] LABS: Activated Partial Thrombo Time 28.8 Seconds (26.0-36.0)
[2021-03-18 17:54] LABS: Alanine Aminotransferase 18 Units/L (7-52); Albumin 3.7 g/dL (3.5-5.7); Albumin/Globulin Ratio 1.6 (1.1-2.2); Alkaline Phosphatase 112 Units/L (34-104); Aspartate Amino Transferase 19 Units/L (13-39); BUN/Creatinine Ratio 29 (6-26); Bilirubin,Total 1.3 mg/dL (0.3-1.0); Blood Urea Nitrogen 23 mg/dL (8-23); Carbon Dioxide 31 mEq/L (23-29); Chloride 98 mEq/L (98-107); Globulin 2.3 g/dL (2.4-3.5); Glucose 373 mg/dL (70-105); Osmolality,Calculated 305 (280-300); Potassium 4.3 mEq/L (3.5-5.1); Sodium 138 mEq/L (136-145); Troponin I 0.04 ng/mL (< 0.04); eGFR For African Americans > 60 (> 60); eGFR For Non-African Americans > 60 (> 60)
[2021-03-18] MEDS ORDERED: Furosemide 20 MG/2 ML VIAL IVP ONE (18:00)
[2021-03-18] MEDS ORDERED: D5% in Water 1,000 ML IVC PRN ×2 (18:21→20:32)
[2021-03-18] MEDS ORDERED: Dextrose Gel 15 GM/37.5 ML TUBE PO PRN ×4 (18:21→20:32)
[2021-03-18] MEDS ORDERED: Naloxone 0.4 MG/ML INJ IVP PRN ×2 (18:21→20:32)
[2021-03-18] MEDS ORDERED: Acetaminophen 325 MG TABLET PO PRN (18:21)
[2021-03-18] MEDS ORDERED: Melatonin 3 MG TABLET PO PRN (18:21)
[2021-03-18] MEDS ORDERED: *HR* Dextrose 50 % in Water (Vial) 50 ML VIAL IVP PRN ×2 (18:21→20:32)
[2021-03-18] MEDS ORDERED: Ondansetron 4 MG/2 ML VIAL IVP PRN ×2 (18:21→20:32)
[2021-03-18] MEDS ORDERED: Albuterol 2.5 MG/3 ML NEBULIZER IH PRN ×2 (18:26→20:32)
[2021-03-18] MEDS ORDERED: Metoclopramide 10 MG/2 ML VIAL IVP SCH (18:26)
[2021-03-18] MEDS ORDERED: hydrOXYzine pamoate 25 MG CAPSULE PO PRN (18:26)
[2021-03-18] MEDS ORDERED: Insulin LISPRO 300 UNITS/3 ML VIAL SUBQ SCH ×2 (21:00)
[2021-03-18] MEDS ORDERED: Insulin DETEMIR 100 UNIT/ML per UNIT SUBQ ONE ×2 (21:00)
[2021-03-18] MEDS ORDERED: Budesonide/Formoterol 160/4.5 1 PUFF INH IH SCH (22:00)
[2021-03-18] MEDS: Budesonide/Formoterol 160/4.5 1 PUFF INH IH SCH (22:08)
[2021-03-18] MEDS: Melatonin 3 MG TABLET PO PRN (23:39)
[2021-03-18] MEDS: Metoclopramide 10 MG/2 ML VIAL IVP SCH (23:41)
[2021-03-18] MEDS: methylPREDNISolone 125 MG/2 ML VIAL IVP SCH (23:48)
[2021-03-19] MEDS ORDERED: methylPREDNISolone 125 MG/2 ML VIAL IVP SCH
[2021-03-19] MEDS: Acetaminophen 325 MG TABLET PO PRN ×2 (02:12→10:37)
[2021-03-19] MEDS: hydrOXYzine pamoate 25 MG CAPSULE PO PRN ×2 (02:12→22:09)
[2021-03-19] MEDS: *HR* Enoxaparin 40 MG/0.4 ML SYRINGE SQ SCH (05:05)
[2021-03-19] MEDS: Metoclopramide 10 MG/2 ML VIAL IVP SCH ×4 (05:06→23:55)
[2021-03-19] MEDS ORDERED: *HR* Enoxaparin 40 MG/0.4 ML SYRINGE SQ SCH (06:00)
[2021-03-19] MEDS ORDERED: Insulin LISPRO 300 UNITS/3 ML VIAL SUBQ SCH ×2 (07:30)
[2021-03-19] MEDS ORDERED: Tiotropium 10 INH DOSE IH ONE (07:40)
[2021-03-19] MEDS: Budesonide/Formoterol 160/4.5 1 PUFF INH IH SCH ×2 (08:30→21:20)
[2021-03-19] MEDS: Tiotropium 10 INH DOSE IH SCH (08:31)
[2021-03-19] MEDS ORDERED: Furosemide 20 MG/2 ML VIAL IVP SCH (09:00)
[2021-03-19] MEDS ORDERED: lisinopriL 5 MG TABLET PO SCH (09:00)
[2021-03-19] MEDS ORDERED: Aspirin Enteric Coated 81 MG Tablet PO SCH (09:00)
[2021-03-19] MEDS ORDERED: Metoprolol XL (24 HR) Succ 25 MG TAB.ER.24H PO SCH (09:00)
[2021-03-19] MEDS ORDERED: *HR* Digoxin 0.125 MG TABLET PO SCH (09:00)
[2021-03-19] MEDS ORDERED: Insulin DETEMIR 100 UNIT/ML X5UNITS SUBQ SCH ×2 (09:00)
[2021-03-19] MEDS ORDERED: Isosorbide MONOnitrate (24 HR) 30 MG TAB.ER.24H PO SCH (09:00)
[2021-03-19 09:28] LABS: Hematocrit 42.6 % (35.3-44.9); Hemoglobin 13.9 g/dL (11.5-15.4); Mean Corpuscular HGB Conc 32.6 g/dL (31.6-35.5); Mean Corpuscular Hemoglobin 28.1 pg (28.0-33.3); Mean Corpuscular Volume 86.2 fL (83.0-100.0); Platelet Count 177 K/mcL (140-400); Red Blood Count 4.94 M/mcL (3.82-4.97); Red Cell Distribution Width 15.5 % (11.5-14.5)
[2021-03-19] MEDS ORDERED: Tiotropium 10 INH DOSE IH SCH (10:00)
[2021-03-19 10:14] LABS: Calcium 8.8 mg/dL (8.6-10.3); Magnesium 1.6 mg/dL (1.6-2.6); Potassium 4.5 mEq/L (3.5-5.1); Troponin I 0.03 ng/mL (< 0.04)
[2021-03-19] MEDS ORDERED: INSULIN ASPART SQ ONE ×2 (10:30→16:23)
[2021-03-19] MEDS: Furosemide 20 MG/2 ML VIAL IVP SCH ×2 (10:36→16:38)
[2021-03-19] MEDS: Aspirin Enteric Coated 81 MG Tablet PO SCH (10:37)
[2021-03-19] MEDS: methylPREDNISolone 125 MG/2 ML VIAL IVP SCH ×3 (10:37→23:56)
[2021-03-19] MEDS: lisinopriL 5 MG TABLET PO SCH (10:37)
[2021-03-19] MEDS: *HR* Digoxin 0.125 MG TABLET PO SCH (10:37)
[2021-03-19] MEDS: Metoprolol XL (24 HR) Succ 25 MG TAB.ER.24H PO SCH (10:38)
[2021-03-19] MEDS: Isosorbide MONOnitrate (24 HR) 30 MG TAB.ER.24H PO SCH (10:38)
[2021-03-19] MEDS: INSULIN ASPART SQ SCH ×4 (10:39→22:14)
[2021-03-19] MEDS: LANTUS SOLOSTAR PEN SQ SCH ×2 (10:39→22:13)
[2021-03-19 14:58] LABS: Estimated Average Glucose 292 mg/dl; Hemoglobin A1C 11.8 %
[2021-03-19 21:38] LABS: Bilirubin,Urine Negative (Negative); Blood,Urine Negative (Negative); Clarity,Urine Clear (Clear); Color,Urine Yellow (Yellow); Glucose,Urine (UA) 500 mg/dL (Normal); Ketones,Urine Negative (Negative); Leukocyte Esterase,Urine Negative (Negative); Nitrite,Urine Negative (Negative); Protein,Urine Negative (Neg-Trace); Urobilinogen,Urine Normal (Normal)
[2021-03-19 21:45] LABS: Bacteria,Urine None Seen per hpf (None-Few)
[2021-03-19] MEDS: Melatonin 3 MG TABLET PO PRN (22:09)
[2021-03-20] MEDS: Metoclopramide 10 MG/2 ML VIAL IVP SCH ×2 (05:56→22:54)
[2021-03-20] MEDS: *HR* Enoxaparin 40 MG/0.4 ML SYRINGE SQ SCH (05:57)
[2021-03-20] MEDS ORDERED: Patient Taking Own Medication 1 EACH PO SCH ×2 (09:00)
[2021-03-20] MEDS: Budesonide/Formoterol 160/4.5 1 PUFF INH IH SCH ×2 (09:13→20:47)
[2021-03-20] MEDS: Tiotropium 10 INH DOSE IH SCH (09:14)
[2021-03-20] MEDS: Isosorbide MONOnitrate (24 HR) 30 MG TAB.ER.24H PO SCH (09:24)
[2021-03-20] MEDS: lisinopriL 5 MG TABLET PO SCH (09:24)
[2021-03-20] MEDS: *HR* Digoxin 0.125 MG TABLET PO SCH (09:24)
[2021-03-20] MEDS: Aspirin Enteric Coated 81 MG Tablet PO SCH (09:24)
[2021-03-20] MEDS: methylPREDNISolone 125 MG/2 ML VIAL IVP SCH ×3 (09:25→23:06)
[2021-03-20] MEDS: Metoprolol XL (24 HR) Succ 25 MG TAB.ER.24H PO SCH (09:25)
[2021-03-20] MEDS: Furosemide 20 MG/2 ML VIAL IVP SCH ×2 (09:25→17:01)
[2021-03-20] MEDS: LANTUS SOLOSTAR PEN SQ SCH ×3 (09:26→20:32)
[2021-03-20] MEDS: INSULIN ASPART SQ SCH ×4 (09:26→20:33)
[2021-03-21] MEDS: *HR* Enoxaparin 40 MG/0.4 ML SYRINGE SQ SCH (05:40)
[2021-03-21 06:36] VITALS: BP 126/77
[2021-03-21] MEDS: INSULIN ASPART SQ SCH (07:26)
[2021-03-21] MEDS: LANTUS SOLOSTAR PEN SQ SCH (07:27)
[2021-03-21] MEDS: lisinopriL 5 MG TABLET PO SCH (07:29)
[2021-03-21] MEDS: methylPREDNISolone 125 MG/2 ML VIAL IVP SCH (07:29)
[2021-03-21] MEDS: Furosemide 20 MG/2 ML VIAL IVP SCH (07:29)
[2021-03-21] MEDS: Aspirin Enteric Coated 81 MG Tablet PO SCH (07:30)
[2021-03-21] MEDS: *HR* Digoxin 0.125 MG TABLET PO SCH (07:30)
[2021-03-21] MEDS: Metoprolol XL (24 HR) Succ 25 MG TAB.ER.24H PO SCH (07:30)
[2021-03-21] MEDS: Isosorbide MONOnitrate (24 HR) 30 MG TAB.ER.24H PO SCH (07:30)
[2021-03-21] MEDS ORDERED: INSULIN ASPART SQ ONE (08:15)
[2021-03-21] MEDS ORDERED: Insulin LISPRO 300 UNITS/3 ML VIAL SUBQ ONE (08:15)
[2021-03-21] MEDS: Budesonide/Formoterol 160/4.5 1 PUFF INH IH SCH (09:01)
[2021-03-21] MEDS: Tiotropium 10 INH DOSE IH SCH (09:02)
== END 2021-03-21 11:00 | disposition home health service (06) | DRG 194 ==
LOC: EMEROOPIK 15:58 → INPPIK 15:58
PROVIDERS: ADMIT Family Medicine; ATTEND Family Medicine

== ENCOUNTER 2021-03-29 15:36 | Observation (INO) ==
[2021-03-29] MEDS ORDERED: Ipratropium/Albuterol Neb 3 ML IH ONE (15:38)
[2021-03-29] MEDS ORDERED: Azithromycin 500 MG in 0.9 % Sodium Chloride 250 ML IVPB ONE (15:38)
[2021-03-29] MEDS ORDERED: cefTRIAXone 2,000 MG in Water for inj. (sterile) 10 ML IVP ONE (15:38)
[2021-03-29] MEDS ORDERED: methylPREDNISolone 125 MG/2 ML VIAL IVP ONE (15:38)
[2021-03-29 16:12] LABS: Basophils % 0.1 %; Eosinophils # 0.2 K/mcL (0.0-0.6); Eosinophils % 1.8 %; Hematocrit 41.6 % (35.3-44.9); Hemoglobin 13.6 g/dL (11.5-15.4); Immature Granulocytes % 0.3 % (0-4); Lymphocytes # 1.1 K/mcL (0.6-4.6); Lymphocytes % 11.7 %; Mean Corpuscular HGB Conc 32.7 g/dL (31.6-35.5); Mean Corpuscular Hemoglobin 27.9 pg (28.0-33.3); Mean Corpuscular Volume 85.2 fL (83.0-100.0); Mean Platelet Volume 12.3 fL (9.4-12.4); Monocytes # 0.6 K/mcL (0.0-1.3); Monocytes % 6.6 %; Neutrophils # 7.1 K/mcL (1.6-8.9); Platelet Count 166 K/mcL (140-400); Red Blood Count 4.88 M/mcL (3.82-4.97); Red Cell Distribution Width 15.7 % (11.5-14.5); Segmented Neutrophils % 79.5 %
[2021-03-29 16:18] LABS: INR 1.2; Prothrombin Time 13.9 Seconds (9.4-12.1)
[2021-03-29] MEDS ORDERED: *HR* LORazepam 2 MG/ML VIAL IVP ONE (16:18)
[2021-03-29 16:25] LABS: Alanine Aminotransferase 29 Units/L (7-52); Albumin 3.3 g/dL (3.5-5.7); Albumin/Globulin Ratio 1.5 (1.1-2.2); Alkaline Phosphatase 105 Units/L (34-104); Aspartate Amino Transferase 19 Units/L (13-39); BUN/Creatinine Ratio 31 (6-26); Bilirubin,Direct 0.2 mg/dL (0.0-0.2); Bilirubin,Indirect 0.9 mg/dL (0.0-1.0); Bilirubin,Total 1.1 mg/dL (0.3-1.0); Blood Urea Nitrogen 22 mg/dL (8-23); Carbon Dioxide 33 mEq/L (23-29); Chloride 97 mEq/L (98-107); Globulin 2.2 g/dL (2.4-3.5); Glucose 445 mg/dL (70-105); Osmolality,Calculated 305 (280-300); Potassium 5.1 mEq/L (3.5-5.1); Sodium 136 mEq/L (136-145); Total Protein 5.5 g/dL (6.4-8.9); eGFR For African Americans > 60 (> 60); eGFR For Non-African Americans > 60 (> 60)
[2021-03-29] MEDS ORDERED: Insulin Regular, Human 100 UNIT/ML IV ONE (16:29)
[2021-03-29 16:40] LABS: Troponin I 0.05 ng/mL (< 0.04)
[2021-03-29] MEDS ORDERED: Acetaminophen 325 MG TABLET PO PRN (16:48)
[2021-03-29] MEDS ORDERED: Melatonin 3 MG TABLET PO PRN (16:48)
[2021-03-29] MEDS ORDERED: Naloxone 0.4 MG/ML INJ IVP PRN (16:48)
[2021-03-29] MEDS ORDERED: Ondansetron 4 MG/2 ML VIAL IVP PRN (16:48)
[2021-03-29] MEDS ORDERED: Dextrose Gel 15 GM/37.5 ML TUBE PO PRN ×3 (16:52→22:04)
[2021-03-29] MEDS ORDERED: hydrOXYzine pamoate 25 MG CAPSULE PO PRN (16:52)
[2021-03-29] MEDS ORDERED: D5% in Water 1,000 ML IVC PRN ×2 (16:52→22:04)
[2021-03-29] MEDS ORDERED: *HR* Dextrose 50 % in Water (Vial) 50 ML VIAL IVP PRN ×2 (16:52→22:04)
[2021-03-29] MEDS ORDERED: Nitroglycerin 0.4 MG TAB.SUBL SL PRN (16:54)
[2021-03-29] MEDS ORDERED: Perflutren Lipid Microsphere 1.3 ML in 0.9 % Sodium Chloride 8.7 ML IVP PRN (16:59)
[2021-03-29] MEDS: Ipratropium/Albuterol Neb 3 ML IH SCH ×2 (19:34→23:12)
[2021-03-29] MEDS: Budesonide/Formoterol 160/4.5 1 PUFF INH IH SCH (19:36)
[2021-03-29] MEDS: Furosemide 40 MG/4 ML VIAL IVP SCH (20:53)
[2021-03-29] MEDS ORDERED: Insulin LISPRO 300 UNITS/3 ML VIAL SUBQ SCH ×3 (21:00)
[2021-03-29] MEDS ORDERED: Insulin DETEMIR 100 UNIT/ML X5UNITS SUBQ SCH (21:00)
[2021-03-29] MEDS ORDERED: LANTUS SUBQ SCH (22:30)
[2021-03-29] MEDS ORDERED: Insulin LISPRO 300 UNITS/3 ML VIAL SUBQ ONE (22:30)
[2021-03-29] MEDS ORDERED: LANTUS IVP SCH ×2 (22:30)
[2021-03-29] MEDS: LANTUS SQ SCH (22:49)
[2021-03-30 02:55] LABS: Hematocrit 39.5 % (35.3-44.9); Mean Corpuscular HGB Conc 32.9 g/dL (31.6-35.5); Mean Corpuscular Volume 84.9 fL (83.0-100.0); Mean Platelet Volume 12.3 fL (9.4-12.4); Platelet Count 163 K/mcL (140-400); Red Blood Count 4.65 M/mcL (3.82-4.97); Red Cell Distribution Width 15.1 % (11.5-14.5); White Blood Count 7.2 K/mcL (4.3-11.1)
[2021-03-30 03:14] LABS: BUN/Creatinine Ratio 32 (6-26); Blood Urea Nitrogen 25 mg/dL (8-23); Calcium 8.7 mg/dL (8.6-10.3); Carbon Dioxide 33 mEq/L (23-29); Chloride 97 mEq/L (98-107); Chol/HDL Ratio 4.8 (0-4.9); Cholesterol 201 mg/dL (< 200); Glucose 260 mg/dL (70-105); HDL Cholesterol 42 mg/dL (40-59); LDL Cholesterol,Calculated 146 mg/dL (< 100); Magnesium 1.5 mg/dL (1.6-2.6); Osmolality,Calculated 297 (280-300); Potassium 4.3 mEq/L (3.5-5.1); Sodium 137 mEq/L (136-145); Triglycerides 65 mg/dL (< 150); eGFR For African Americans > 60 (> 60); eGFR For Non-African Americans > 60 (> 60)
[2021-03-30] MEDS: Ipratropium/Albuterol Neb 3 ML IH SCH ×5 (03:23→19:59)
[2021-03-30] MEDS ORDERED: Insulin LISPRO 300 UNITS/3 ML VIAL SUBQ SCH ×3 (04:35→07:30)
[2021-03-30] MEDS ORDERED: Insulin LISPRO 300 UNITS/3 ML VIAL SUBQ ONE (04:53)
[2021-03-30] MEDS: *HR* Enoxaparin 40 MG/0.4 ML SYRINGE SQ SCH (05:23)
[2021-03-30] MEDS: Furosemide 40 MG/4 ML VIAL IVP SCH ×2 (09:09→16:40)
[2021-03-30] MEDS: Aspirin Enteric Coated 81 MG Tablet PO SCH (09:10)
[2021-03-30] MEDS: Metoprolol XL (24 HR) Succ 25 MG TAB.ER.24H PO SCH (09:10)
[2021-03-30] MEDS: *HR* Digoxin 0.125 MG TABLET PO SCH (09:10)
[2021-03-30] MEDS: Azithromycin 250 MG TABLET PO SCH (09:11)
[2021-03-30] MEDS: lisinopriL 5 MG TABLET PO SCH (09:11)
[2021-03-30] MEDS: Isosorbide MONOnitrate (24 HR) 30 MG TAB.ER.24H PO SCH (09:11)
[2021-03-30] MEDS: LANTUS SQ SCH ×2 (09:12→21:07)
[2021-03-30] MEDS: Budesonide/Formoterol 160/4.5 1 PUFF INH IH SCH ×2 (09:56→21:54)
[2021-03-30] MEDS: HUMALOG 200 UNIT/ML SQ SCH ×5 (12:14→21:04)
[2021-03-30] MEDS: cefTRIAXone 1,000 MG in 0.9 % Sodium Chloride Mini Bag 100 ML IVP SCH (14:43)
[2021-03-30] MEDS ORDERED: Perflutren Lipid Microsphere 1.3 ML in 0.9 % Sodium Chloride 8.7 ML IVP PRN (18:10)
[2021-03-31] MEDS: Ipratropium/Albuterol Neb 3 ML IH SCH ×6 (00:14→20:07)
[2021-03-31] MEDS: *HR* Enoxaparin 40 MG/0.4 ML SYRINGE SQ SCH (06:51)
[2021-03-31] MEDS: Budesonide/Formoterol 160/4.5 1 PUFF INH IH SCH ×2 (07:53→21:52)
[2021-03-31] MEDS: Aspirin Enteric Coated 81 MG Tablet PO SCH (08:51)
[2021-03-31] MEDS: Azithromycin 250 MG TABLET PO SCH (08:51)
[2021-03-31] MEDS: Furosemide 40 MG/4 ML VIAL IVP SCH (08:51)
[2021-03-31] MEDS: *HR* Digoxin 0.125 MG TABLET PO SCH (08:52)
[2021-03-31] MEDS: Isosorbide MONOnitrate (24 HR) 30 MG TAB.ER.24H PO SCH (08:52)
[2021-03-31] MEDS: Metoprolol XL (24 HR) Succ 25 MG TAB.ER.24H PO SCH (08:53)
[2021-03-31] MEDS: HUMALOG 200 UNIT/ML SQ SCH ×7 (08:55→20:45)
[2021-03-31] MEDS: LANTUS SQ SCH (09:00)
[2021-03-31] MEDS: lisinopriL 5 MG TABLET PO SCH (11:46)
[2021-03-31 13:41] LABS: Basophils % 0.3 %; Eosinophils # 0.3 K/mcL (0.0-0.6); Eosinophils % 2.2 %; Hematocrit 38.6 % (35.3-44.9); Hemoglobin 12.7 g/dL (11.5-15.4); Immature Granulocytes % 0.4 % (0-4); Lymphocytes # 1.2 K/mcL (0.6-4.6); Lymphocytes % 10.2 %; Mean Corpuscular HGB Conc 32.9 g/dL (31.6-35.5); Mean Corpuscular Hemoglobin 28.3 pg (28.0-33.3); Mean Corpuscular Volume 86.2 fL (83.0-100.0); Monocytes # 0.7 K/mcL (0.0-1.3); Monocytes % 5.3 %; Platelet Count 185 K/mcL (140-400); Red Blood Count 4.48 M/mcL (3.82-4.97); Segmented Neutrophils % 81.6 %; White Blood Count 12.2 K/mcL (4.3-11.1)
[2021-03-31 13:56] LABS: BUN/Creatinine Ratio 39 (6-26); Blood Urea Nitrogen 36 mg/dL (8-23); Calcium 8.6 mg/dL (8.6-10.3); Carbon Dioxide 37 mEq/L (23-29); Chloride 99 mEq/L (98-107); Glucose 91 mg/dL (70-105); Magnesium 1.7 mg/dL (1.6-2.6); Osmolality,Calculated 300 (280-300); Potassium 3.8 mEq/L (3.5-5.1); Sodium 141 mEq/L (136-145); eGFR For African Americans > 60 (> 60); eGFR For Non-African Americans > 60 (> 60)
[2021-03-31] MEDS: cefTRIAXone 1,000 MG in 0.9 % Sodium Chloride Mini Bag 100 ML IVP SCH (14:46)
[2021-03-31] MEDS: Furosemide 20 MG/2 ML VIAL IVP SCH (17:03)
[2021-03-31] MEDS ORDERED: LANTUS SQ SCH (21:00)
[2021-04-01] MEDS: Ipratropium/Albuterol Neb 3 ML IH SCH ×4 (00:01→13:13)
[2021-04-01] MEDS: *HR* Enoxaparin 40 MG/0.4 ML SYRINGE SQ SCH (06:15)
[2021-04-01 07:03] VITALS: BP 109/69
[2021-04-01] MEDS: HUMALOG 200 UNIT/ML SQ SCH ×4 (08:21→11:42)
[2021-04-01] MEDS: lisinopriL 5 MG TABLET PO SCH (08:22)
[2021-04-01] MEDS: Isosorbide MONOnitrate (24 HR) 30 MG TAB.ER.24H PO SCH (08:22)
[2021-04-01] MEDS: Metoprolol XL (24 HR) Succ 25 MG TAB.ER.24H PO SCH (08:22)
[2021-04-01] MEDS: Aspirin Enteric Coated 81 MG Tablet PO SCH (08:22)
[2021-04-01] MEDS: *HR* Digoxin 0.125 MG TABLET PO SCH (08:22)
[2021-04-01] MEDS: Azithromycin 250 MG TABLET PO SCH (08:23)
[2021-04-01] MEDS: Furosemide 20 MG/2 ML VIAL IVP SCH (08:23)
[2021-04-01] MEDS ORDERED: Ergocalciferol (VIT D2) 50,000 UNIT (1.25MG) CAP PO SCH (09:00)
[2021-04-01] MEDS: Budesonide/Formoterol 160/4.5 1 PUFF INH IH SCH (10:11)
[2021-04-01] MEDS ORDERED: LANTUS SQ SCH (21:00)
== END 2021-04-01 13:22 | disposition hospice, home (50) ==
LOC: INPPIK 15:36 → EMEROOPIK 15:36 → INPPIK 18:17
PROVIDERS: ADMIT Family Medicine; ATTEND Family Medicine